=== PATIENT | female | born 2000 | race Caucasian/White ===

== ENCOUNTER 2018-08-08 20:24 | Emergency (ER) | payer OTHER ==
[2018-08-08 20:29] VITALS: BMI 20.5
--- NOTE | 2018-08-08 21:10 | PDOC ---
History of Present Illness - General History Source: Patient Exam Limitations: No Limitations - History of Present Illness Travel History: No Initial Comments: 08/08/18 21:45 Best Contact: PCP: Dr. Shivani Davis Pmhx:0 Pshx:0 Allergies:NKDA FH:0 Social Hx: Cigarettes/ 0 Alcohol/ 0 Drugs/0 LMP:02/09/2018 17-year-old female presents to the emergency department complaining of vaginal bleed described as "a lot of blood" with pelvic cramping times one hour. Patient states she was sitting/resting at home when she felt an acute lower pelvic cramping. Patient states she went to the bathroom and noticed a blood clot. Patient denies fever, chills, nausea/vomiting, headache, dizziness, lightheadedness, neck pain/stiffness, back pains, chest pain, urinary symptoms: Frequency/urgency/hesitancy, hematuria. Patient states she last had a sonogram 5 weeks ago which was normal. <Claude Nam - Last Filed: 08/09/18 01:53> <Caludette Cuellar - Last Filed: 08/09/18 17:16> - General Chief Complaint: Vaginal Bleeding Stated Complaint: 27 WEEKS Vaginal Bleeding Time Seen by Provider: 08/08/18 20:38 Past History - Past Medical History COPD: No - Suicide/Smoking/Psychosocial Hx Smoking History: Never smoked <Claude Nam - Last Filed: 08/09/18 01:53> <Claudette Cuellar - Last Filed: 08/09/18 17:16> - Past Medical History Allergies/Adverse Reactions: Allergies Allergy/AdvReac Type Severity Reaction Status Date / Time No Known Allergies Allergy Verified 08/08/18 21:40 Home Medications: Ambulatory Orders NK [No Known Home Medication] 08/08/18 Review of Systems - Review of Systems Able to Perform ROS?: Yes Comments:: 08/08/18 21:48 CONSTITUTIONAL: Absent: fever, chills, diaphoresis, generalized weakness, malaise, loss of appetite HEENT: Absent: rhinorrhea, nasal congestion, throat pain, throat swelling, difficulty swallowing, mouth swelling, ear pain, eye pain, visual Changes CARDIOVASCULAR: Absent: chest pain, loss of consciousness, palpitations, irregular heart rate, peripheral edema RESPIRATORY: Absent: cough, shortness of breath, dyspnea with exertion, orthopnea, wheezing, stridor, hemoptysis GASTROINTESTINAL: Absent: abdominal pain, abdominal distension, nausea, vomiting, diarrhea, constipation, melena, hematochezia GENITOURINARY: Absent: dysuria, frequency, urgency, hesitancy, hematuria, flank pain, genital pain SKIN: Absent: rash, itching, pallor Is the patient limited Urdu proficient: No <Claude Nam - Last Filed: 08/09/18 01:53> *Physical Exam - Vital Signs Last Vital Signs Temp Pulse Resp BP Pulse Ox 98.8 F 91 H 18 97/56 L 98 08/08/18 20:26 08/08/18 20:26 08/08/18 20:26 08/08/18 20:26 08/08/18 20:26 - Physical Exam Comments: 08/08/18 21:49 GENERAL: Well developed, well nourished. Awake and alert. No acute distress. HEENT: Normocephalic, atraumatic. PERRLA, EOMI. No conjunctival pallor. Sclera are non- icteric. Moist mucous membranes. Oropharynx is clear. NECK: Supple. Full ROM. No JVD. Carotid pulses 2+ and symmetric, without bruits. No thyromegaly. No lymphadenopathy. CARDIOVASCULAR: Regular rate and rhythm. No murmurs, rubs, or gallops. Distal pulses are 2+ and symmetric. PULMONARY: No evidence of respiratory distress. Lungs clear to auscultation bilaterally. No wheezing, rales or rhonchi. ABDOMINAL: Soft. Non-tender. Non-distended. No rebound or guarding. No organomegaly. Normoactive bowel sounds. SKIN: Warm and dry. Normal capillary refill. No rashes. No jaundice. <Claude Nam - Last Filed: 08/09/18 01:53> - Vital Signs Last Vital Signs Temp Pulse Resp BP Pulse Ox 98.3 F 96 H 18 113/61 98 08/08/18 21:30 08/08/18 21:30 08/08/18 21:30 08/08/18 21:30 08/08/18 20:26 <Claudette Cuellar - Last Filed: 08/09/18 17:16> ED Treatment Course - LABORATORY CBC & Chemistry Diagram: 08/08/18 21:00 08/08/18 21:00 - RADIOLOGY Radiograph Interpretation: 08/09/18 01:53 Trasvaginal us; no abnormalities identified. Estimated gestational age is 26 weeks and 3 days. Fetus is in vertex presentation. Normal amount of amniotic fluid for age. There is an anterior placenta without previa or abruption. Normal heart rate of 138 bpm. Cervix is 3.6 cm in length and closed. <Claude Nam - Last Filed: 08/09/18 01:53> - LABORATORY CBC & Chemistry Diagram: 08/08/18 21:00 08/08/18 21:00 - ADDITIONAL ORDERS Additional order review: 08/08/18 21:00 RBC 3.49 L MCV 95.5 MCHC 34.0 RDW 13.9 MPV 9.6 Neutrophils % 76.4 Lymphocytes % 16.6 Monocytes % 5.7 Eosinophils % 1.2 Basophils % 0.1 <Claudette Cuellar - Last Filed: 08/09/18 17:16> Progress Note - Progress Note Progress Note: Pt sent to L&D for monitoring <Claude Nam - Last Filed: 08/09/18 01:53> *DC/Admit/Observation/Transfer - Discharge Dispostion Decision to Admit order: No <Claude Nam - Last Filed: 08/09/18 01:53> - Attestations Physician Attestion: I reviewed the case with the mid-level practitioner and agree with the mid- level practitioner's assessment, diagnosis and disposition. <Claudette Cuellar - Last Filed: 08/09/18 17:16> Diagnosis at time of Disposition: Vagina bleeding, Threatened - Discharge Dispostion Disposition: HOME Condition at time of disposition: Stable - Referrals Referrals: [facility] ([facility]) [Outside] - Patient Instructions Additional Instructions: DISCHARGE TO HOME FOLLOW UP WITH 2 [facility] ON Friday08/10/18 REST AT HOME DRINK PLENTY OF FLUIDS DIET TOLERATED AVOID ANY SEXUAL INTERCOURSE UNTIL SEEN IN CLINIC BY MD CONTINUE ALL HOME MEDICATIONS RETURN TO HOSPITAL: CONTRACTIONS EVERY 3 TO 5 MINUTES DECREASED MOVEMENT HEAVY VAGINAL BLEEDING RUPTURE OF MEMBRANES OR "WATER BREAKS"
[2018-08-08 21:12] LABS: BASO % 0.1 % (0-2.0); EOS % 1.2 % (0-4.5); HEMATOCRIT 33.3 % (32.4-45.2); HEMOGLOBIN 11.4 GM/dL (10.7-15.3); LYMPH % 16.6 % (8-40); MCH 32.5 pg (25.7-33.7); MEAN CELL VOLUME 95.5 fl (80-96); MEAN PLT VOLUME 9.6 fl (7.5-11.1); MONO % 5.7 % (3.8-10.2); NEUT % 76.4 % (42.8-82.8); PLATELET COUNT 185 K/MM3 (134-434); RBC 3.49 M/mm3 (3.60-5.2); RDW 13.9 % (11.6-15.6); WHITE BLOOD COUNT 10.8 K/mm3 (4.0-10.0)
[2018-08-08 21:21] LABS: URINE APPEARANCE SLCLOUDY; URINE BILIRUBIN NEGATIVE (<2.0 mg/dL); URINE COLOR LTYELLOW; URINE GLUCOSE (UA) NEGATIVE (NEGATIVE); URINE KETONE NEGATIVE (NEGATIVE); URINE LEUK ESTERASE NEGATIVE (NEGATIVE); URINE NITRITE NEGATIVE (NEGATIVE); URINE PROTEIN NEGATIVE (NEGATIVE); URINE UROBILINOGEN NEGATIVE mg/dL (0.2-1.0)
[2018-08-08 21:23] LABS: EPI CELLS RARE /HPF (FEW); URINE BACTERIA RARE /hpf (NONE SEEN); URINE MUCUS RARE
[2018-08-08 22:14] LABS: ALBUMIN 3.1 g/dl (3.4-5.0); ALK PHOS 76 U/L (45-117); ANION GAP 0 MMOL/L (8-16); BILIRUBIN,TOTAL 0.2 mg/dL (0.2-1); BLOOD UREA NITROGEN 6 mg/dL (7-18); CALCIUM 9.4 mg/dL (8.5-10.1); CHLORIDE 107 mmol/L (98-107); CO2 26 mmol/L (21-32); CREATININE 0.3 mg/dL (0.55-1.3); GLUCOSE,RANDOM 68 mg/dL (74-106); POTASSIUM 3.7 mmol/L (3.5-5.1); SGOT/AST 12 U/L (15-37); SGPT/ALT 15 U/L (13-61); SODIUM 133 mmol/L (136-145); TOT PROT 6.9 g/dl (6.4-8.2)
[2018-08-08 22:27] VITALS: BP 113/61; TEMP 98.3
[2018-08-08 22:28] VITALS: PULSE 96
== END 2018-08-09 02:05 | disposition home or self-care (01) ==
LOC: JER 20:24
DX: O26.892 Other specified pregnancy related conditions, second trimester (principal); O20.0 Threatened abortion; Z3A.26 26 weeks gestation of pregnancy
CPT/HCPCS: 36415; 76816-TC; 76817-TC; 80053; 81003; 81015; 84702; 85025; 86850; 86900; 86901; 99281-25

== ENCOUNTER 2018-10-27 06:15 | Inpatient (IN) | payer OTHER ==
[2018-10-27] MEDS ORDERED: PROMETHAZINE HCL 25 MG/1 ML VIAL IVPUSH ONE (06:52)
[2018-10-27] MEDS ORDERED: BUTORPHANOL TARTRATE 1 MG/ML VIAL IVPB ONE (06:52)
[2018-10-27] MEDS ORDERED: ELECTROLYTE-148 SOLN 1,000 ML IV SCH (07:00)
--- NOTE | 2018-10-27 07:06 | HP ---
Past Medical History - Admission Chief Complaint: Uterine contractions History of Present Illness: 17yo @ 38.4 weeks here with uterine contractions. No VB/LOF. GFM uncomplicated History Source: Patient - Past Medical History PERIPHERAL VASCULAR TECH: No: Alzheimer's, CVA, Dementia, Migraine, Multiple Sclerosis, Peripheral Neuropathy, Parkinson's, Seizure, Syncope, TIA, Vertigo, Other Cardiovascular: No: AFIB, Aneurysm, Aortic Insufficiency, Aortic Stenosis, CAD, CHF, Deep Vein Thrombosis, HTN, Hyperlipdemia, [place], Mitral Insufficiency, Mitral Stenosis, Murmur, Pulmonary Hypertension, Other Gastrointestinal: No: Ascites, Cancer, Constipation, Crohn's Disease, Diverticulitis, Diverticulosis, Esophageal Varices, Gastritis, GERD, GI Bleed, Hemorrhoids, Hiatal Hernia, Inflamatory Bowel Disease, Irritable Bowel Disease, Pancreatitis, Peptic Ulcer Disease, Ulcerative Colitis, Other Hepatobiliary: No: Cirrhosis, Cholelithiasis, Cholecystitis, Choledocholithiasis , Hepatitis A, Hepatitis B, Hepatitis C, Other Reproductive: Yes: Polycystic Ovary Syndrome ...: 2 ...Para: 1 ... Weeks Gestation by Dates: 38.4 Heme/Onc: No: Anemia, B12 Deficiency, Bleeding Disorder, Cancer, Current Chemotherapy, Current Radiation Therapy, Hemochromatosis, Hypercoaguable State, Myeloproliferative Synd, Sickle Cell Disease, Sickle Cell Trait, Thrombocytopenia, Other Infectious Disease: Yes: Other. No: AIDS, C-Diff, Herpes Zoster, HIV, MRSA, STD 's, Tuberculosis, VREF Psych: No: Addictions, Anxiety, Bipolar, Depression, Panic, Psychosis, Schizophrenia, Other Musculoskeletal: No: Bursitis, Chronic low back pain, Hemiparesis, Hemiplegia, Osteoarthritis, Paraplegia, Other Rheumatology: Yes: Lupus - Past Surgical History Past Surgical History: No: None, AAA Repair, AICD, Amputation, Appendectomy, Arthrosocopy, AV Fistula/Graft, Bariatric Surgery, Breast Biopsy, Bypass, CABG, Carotid Endarterectomy, Cataract Removal, Cholecystectomy, Colectomy, Colonoscopy, Colostomy, Craniotomy, , Cystectomy, Hernia Repair, Hysterectomy, Ileal Conduit, Ileosotomy, Joint Replacement, Kidney Transplant, Laminectomy, Liver Transplant, Mastectomy, Nephrectomy, Oopherectomy, Orchiectomy, Permanent Pacemaker, Prostatectomy, Splenectomy, Stent, Thoracotomy , TURP, Tonsillectomy, Tubal Ligation, Upper Endoscopy, Valve Replacement, Vasectomy, Vein Stripping/Ligation Hx Myomectomy: No Hx Transabdominal Cerclage: No - Smoking History Smoking history: Never smoked - Alcohol/Substance Use Hx Alcohol Use: No History of Substance Use: reports: None - Social History Usual Living Arrangement: Yes: With Parent History of Recent Travel: No Home Medications - Allergies Allergies/Adverse Reactions: Allergies Allergy/AdvReac Type Severity Reaction Status Date / Time No Known Allergies Allergy Verified 10/27/18 07:23 - Home Medications Home Medications: Ambulatory Orders Ferrous Sulfate [Iron] 325 mg PO DAILY 10/01/18 Pnv No.95/Ferrous Fum/Folic AC [ Formula] 1 each PO DAILY 10/01/18 Physical Exam - Maternity Constitutional: Yes: Well Nourished, No Distress, Calm - Abdominal Exam/OB Number of Fetuses: Single Presentation: Vertex Contractions: Yes Regularity: Irregular Intensity: Mild/Mod Monitor Mode: External Category: I Accelerations: Uniform Decelerations: None - Vaginal Exam/OB Vaginal Bleediing: No Speculum Exam: No Dilatation (cm): 4-5 Effacement (%): 70 Amniotic Membrane Status: Intact Presentation: Vertex/Position Station: -3 - Physical Exam Musculoskeletal: Yes: WNL Assessment/Plan 17yo @ 38.4aks in labor Admit to L&D NPO, IVFs Epidural prn Anticipate ARJUN Rogers
[2018-10-27] MEDS ORDERED: BUTORPHANOL TARTRATE 1 MG/ML VIAL ONE (07:23)
[2018-10-27] MEDS ORDERED: PROMETHAZINE HCL 25 MG/1 ML VIAL ONE (07:23)
[2018-10-27 07:43] VITALS: BMI 23.4
[2018-10-27 08:24] LABS: BASO % 0.2 % (0-2.0); EOS % 0.9 % (0-4.5); HEMATOCRIT 31.2 % (32.4-45.2); HEMOGLOBIN 10.3 GM/dL (10.7-15.3); LYMPH % 24.9 % (8-40); MCH 30.5 pg (25.7-33.7); MCHC 32.9 g/dl (32.0-36.0); MEAN CELL VOLUME 92.6 fl (80-96); MEAN PLT VOLUME 10.3 fl (7.5-11.1); MONO % 5.6 % (3.8-10.2); NEUT % 68.4 % (42.8-82.8); PLATELET COUNT 173 K/MM3 (134-434); RBC 3.37 M/mm3 (3.60-5.2); RDW 12.9 % (11.6-15.6); WHITE BLOOD COUNT 8.2 K/mm3 (4.0-10.0)
[2018-10-27] MEDS ORDERED: OXYTOCIN 20 UNITS in 0.9% NS 0 UNIT/0 ML INFUS.BAG IV ONE (08:38)
[2018-10-27 08:44] LABS: INR 0.98 (0.83-1.09); PROTHROMBIN TIME (PATIENT) 11.6 SEC (9.7-13.0)
[2018-10-27 08:52] LABS: ANION GAP 10 MMOL/L (8-16); BLOOD UREA NITROGEN 8 mg/dL (7-18); CHLORIDE 105 mmol/L (98-107); CO2 21 mmol/L (21-32); CREATININE 0.3 mg/dL (0.55-1.3); GLUCOSE,RANDOM 129 mg/dL (74-106); POTASSIUM 3.9 mmol/L (3.5-5.1); SODIUM 136 mmol/L (136-145)
--- NOTE | 2018-10-27 09:10 | PN ---
Progress Note, Labor Vaginal Exam #1 Heart Rate (range): Cat I Dilatation: 8 Effacement (%): 100 Presentation: Vertex/Position Station: 0 Remarks: letty ORTEGA Anticipate Emily Rogers MD
[2018-10-27] MEDS ORDERED: OXYTOCIN 10 UNITS/ML VIAL IM ONE (10:10)
[2018-10-27] MEDS ORDERED: oxyCODONE HCL 5 MG TABLET ONE (10:32)
[2018-10-27] MEDS ORDERED: IBUPROFEN 600 MG TABLET (FP) PO ONE (10:32)
[2018-10-27 10:33] LABS: ARTERIAL BLD GAS O2 SATURATION 25.3 % (90-98.9); ARTERIAL BLOOD GAS BASE EXCESS -9.8 meq/l (-2-2); ARTERIAL BLOOD GAS PCO2 75.3 mmHg (35-45); ARTERIAL BLOOD GAS pH 7.09 (7.35-7.45)
[2018-10-27 10:38] LABS: VENOUS PH 7.24 (7.32-7.42); VENOUS PO2 33.5 mmHg (28-48)
[2018-10-27] MEDS: IBUPROFEN 600 MG TABLET (FP) PO PRN ×2 (10:40→17:09)
[2018-10-27] MEDS ORDERED: WITCH HAZEL 50% (TUCKS) 40 PAD/JAR PAD TP PRN (10:42)
[2018-10-27] MEDS ORDERED: METHYLERGONOVINE MALEATE 0.2 MG/1 ML AMP IM PRN (10:42)
[2018-10-27] MEDS ORDERED: BENZOCAINE 20% 57 GM BOTTLE TP PRN (10:42)
[2018-10-27] MEDS ORDERED: BENZOCAINE 28 GM HEMORRHOIDAL OINTMENT TP PRN (10:42)
--- NOTE | 2018-10-27 10:54 | PN ---
Delivery - Delivery Vaginal Delivery: Spontaneous (cx full at 935 am , at 10 am head on perinium, infiltrated wih local anesthesia, median episiotomy done , haed delivered direct OP , cord around necj once reduced, nasopharynx suctioned , ant. post shoulder followed with no difficulty , live baby girl, 8/9 , placents , spontaneous ,complete, rectum checked 3rd degree laceration ,, 3rd degree laceration first repaired with 2 chromic , and then episiotomy repaired in 3 layers with 2 chromic , rectal exam no defect, good tone ,tolorated procedure well) Episiotomy/Laceration: Midline, 3rd degree EBL (cc): 300 Delivery, Single - [place] Feeding Plan Initial Plan: Elected not to breastfeed exclusively throughout hospitalization
--- NOTE | 2018-10-27 10:56 | PN ---
Progress Note (short form) - Note Progress Note: 935 am i took over management, cx full 100 vx 1+ patient wants to push , fhr cat 1
[2018-10-27] MEDS ORDERED: oxyCODONE HCL 5 MG TABLET PO ONE (11:15)
[2018-10-27] MEDS: FERROUS SO4 325 MG TABLET (FP) PO SCH (17:09)
[2018-10-27] MEDS: ACETAMINOPHEN 325 MG TABLET (FP) PO PRN (17:10)
[2018-10-28] MEDS: ACETAMINOPHEN 325 MG TABLET (FP) PO PRN ×3 (03:24→17:12)
[2018-10-28] MEDS: IBUPROFEN 600 MG TABLET (FP) PO PRN ×3 (03:25→17:12)
[2018-10-28 06:55] LABS: BASO % 0.2 % (0-2.0); HEMATOCRIT 29.9 % (32.4-45.2); HEMOGLOBIN 9.6 GM/dL (10.7-15.3); LYMPH % 19.3 % (8-40); MCH 29.8 pg (25.7-33.7); MCHC 32.1 g/dl (32.0-36.0); MEAN CELL VOLUME 92.8 fl (80-96); MEAN PLT VOLUME 10.8 fl (7.5-11.1); MONO % 5.9 % (3.8-10.2); NEUT % 73.6 % (42.8-82.8); PLATELET COUNT 165 K/MM3 (134-434); RBC 3.23 M/mm3 (3.60-5.2); RDW 12.9 % (11.6-15.6); WHITE BLOOD COUNT 12.7 K/mm3 (4.0-10.0)
[2018-10-28] MEDS: FERROUS SO4 325 MG TABLET (FP) PO SCH ×2 (08:06→17:12)
[2018-10-28] MEDS: PRENATAL VITAMINS W/ FOLIC ACID TABLET (FP) PO SCH (09:19)
--- NOTE | 2018-10-28 09:56 | PN ---
Progress Note (short form) - Note Progress Note: ppd 1 doing well, no c/o . voids ok, ambulating, no excess vaginal bleeding CBC, BMP 10/28/18 05:15 10/27/18 07:40 Last Vital Signs Temp Pulse Resp BP Pulse Ox 98.5 F 71 20 93/49 L 98 10/28/18 08:18 10/28/18 08:18 10/28/18 08:18 10/28/18 08:18 10/27/18 12:00 abdomen soft, uterus firm , non tender lochia mild perinium clean , intact no calf tenderness plan ambulate . plan for d/c home in am
[2018-10-28] MEDS ORDERED: DIPHTH,PERTUSS(ACELL),TET 0.5 ML DISP.SYRIN IM ONE (10:00)
[2018-10-28] MEDS ORDERED: SENNOSIDES/DOCUSATE COMBO (SENNA PLUS) TABLET (UD) PO PRN (22:00)
--- NOTE | 2018-10-29 05:56 | DS ---
Physical Examination Vital Signs: Vital Signs Temperature 98.5 F 10/28/18 22:00 Pulse Rate 82 10/28/18 22:00 Respiratory Rate 18 10/28/18 22:00 Blood Pressure 105/61 10/28/18 22:00 O2 Sat by Pulse Oximetry (%) 98 10/27/18 12:00 Constitutional: Yes: Well Nourished, No Distress, Calm Eyes: Yes: WNL, Conjunctiva Clear, EOM Intact HENT: Yes: WNL, Atraumatic, Normocephalic Neck: Yes: WNL, Supple, Trachea Midline Cardiovascular: Yes: WNL, Regular Rate and Rhythm Respiratory: Yes: WNL, Regular, CTA Bilaterally Gastrointestinal: Yes: WNL, Normal Bowel Sounds Musculoskeletal: Yes: WNL Extremities: Yes: WNL Edema: No Integumentary: Yes: WNL Neurological: Yes: WNL, Alert, Oriented ...Motor Strength: WNL Psychiatric: Yes: WNL Labs: CBC, BMP 10/28/18 05:15 10/27/18 07:40 Discharge Summary Reason For Visit: LABOR ADMIT Procedures: Principal: Hospital Course: Patient presented in labor. She had an uncomplicated She met all milestones She was discharged home on PPD#2 Emily Rogers MD - Instructions - Home Medications Comprehensive Discharge Medication List: Ambulatory Orders Ferrous Sulfate [Iron] 325 mg PO DAILY 10/01/18 Pnv No.95/Ferrous Fum/Folic AC [ Formula] 1 each PO DAILY 10/01/18
[2018-10-29 07:56] VITALS: BP 109/60; PULSE 81; TEMP 98.2
[2018-10-29] MEDS: FERROUS SO4 325 MG TABLET (FP) PO SCH (08:06)
[2018-10-29] MEDS: IBUPROFEN 600 MG TABLET (FP) PO PRN (08:06)
[2018-10-29] MEDS: ACETAMINOPHEN 325 MG TABLET (FP) PO PRN (08:07)
[2018-10-29] MEDS: PRENATAL VITAMINS W/ FOLIC ACID TABLET (FP) PO SCH (09:06)
== END 2018-10-29 11:20 | disposition home or self-care (01) | DRG 542 ==
LOC: JLDR 06:15 → J3W 12:15
PROVIDERS: ADMIT Obstetrics & Gynecology; ATTEND Obstetrics & Gynecology
PROC: 10E0XZZ Delivery of Products of Conception, External Approach (ICD-10-PCS; principal; 2018-10-27)
PROC: 0W8NXZZ Division of Female Perineum, External Approach (ICD-10-PCS; 2018-10-27)
PROC: 0DQR0ZZ Repair Anal Sphincter, Open Approach (ICD-10-PCS; 2018-10-27)
DX: O69.81X0 Labor and delivery complicated by cord around neck, without compression, not applicable or unspecified (principal); O70.20 Third degree perineal laceration during delivery, unspecified; Z3A.38 38 weeks gestation of pregnancy; Z37.0 Single live birth
CPT/HCPCS: 36415; 36600; 59409; 80048; 82803; 85025; 85610; 86593; 86850; 86900; 86901; 90715

== ENCOUNTER 2019-08-05 | Inpatient (IN) | payer OTHER ==
[2019-08-05] MEDS: AMPICILLIN - 2 GM in DEXTROSE 5%-WATER 100 ML IVPB STA ×2 (00:25→02:02)
[2019-08-05 00:55] LABS: BASO % 0.3 % (0-2.0); EOS % 0.3 % (0-4.5); HEMATOCRIT 31.4 % (32.4-45.2); HEMOGLOBIN 10.4 GM/dL (10.7-15.3); LYMPH % 13.8 % (8-40); MCH 31.9 pg (25.7-33.7); MCHC 33.2 g/dl (32.0-36.0); MEAN CELL VOLUME 96.3 fl (80-96); MEAN PLT VOLUME 10.9 fl (7.5-11.1); MONO % 6.6 % (3.8-10.2); PLATELET COUNT 165 K/MM3 (134-434); RBC 3.26 M/mm3 (3.60-5.2); RDW 13.4 % (11.6-15.6); WHITE BLOOD COUNT 15.5 K/mm3 (4.0-10.0)
[2019-08-05 01:07] LABS: INR 1.01 (0.83-1.09); PROTHROMBIN TIME (PATIENT) 11.9 SEC (9.7-13.0)
[2019-08-05 01:10] LABS: ACTIVATED PTT 24.5 SECONDS (25.2-36.5)
--- NOTE | 2019-08-05 01:10 | HP ---
Past Medical History - Admission Chief Complaint: Vaginal Bleeding History of Present Illness: 18yo @ 26.3wks by LMP/sono here with vaginal bleeding. Seen in triage over the weekend for bleeding, found to have shortened cervix 2.5cm with funneling. Received BMZ 08/01 and 08/02. Denies LOF/ctx, +FM. Preg c/b short interval (last delivered 10/27/2018). History Source: Patient Limitations to Obtaining History: No Limitations, Clinical Condition, Dementia, Intoxication, Intubated, Language Barrier, Physical Impairment, Poor Historian, Uncooperative, Unresponsive, Other - Past Medical History LONG GOODS DRIER: No: Alzheimer's, CVA, Dementia, Migraine, Multiple Sclerosis, Peripheral Neuropathy, Parkinson's, Seizure, Syncope, TIA, Vertigo, Other Cardiovascular: No: AFIB, Aneurysm, Aortic Insufficiency, Aortic Stenosis, CAD, CHF, Deep Vein Thrombosis, HTN, Hyperlipdemia, [place], Mitral Insufficiency, Mitral Stenosis, Murmur, Pulmonary Hypertension, Other Pulmonary: No: Asthma, Bronchitis, Cancer, COPD, O2 Dependent, Pneumonia, Previously Intubated, Pulmonary Embolus, Pulmonary Fibrosis, Sleep Apnea, Other Gastrointestinal: No: Ascites, Cancer, Constipation, Crohn's Disease, Diverticulitis, Diverticulosis, Esophageal Varices, Gastritis, GERD, GI Bleed, Hemorrhoids, Hiatal Hernia, Inflamatory Bowel Disease, Irritable Bowel Disease, Pancreatitis, Peptic Ulcer Disease, Ulcerative Colitis, Other Hepatobiliary: No: Cirrhosis, Cholelithiasis, Cholecystitis, Choledocholithiasis , Hepatitis A, Hepatitis B, Hepatitis C, Other Renal/: No: Renal Failure, Renal Inusuff, BPH, Cancer, Hematuria, Hemodialysis , Neurogenic Bladder, Renal Calculi, UTI, Other ...: 6 ...Para: 2 ...Term: 2 ...Spon : 3 Heme/Onc: Yes: Anemia Infectious Disease: Yes: Other. No: AIDS, C-Diff, Herpes Zoster, HIV, MRSA, STD 's, Tuberculosis, VREF Rheumatology: No: Fibromyalgia, Gout, Lupus, Rheumatoid Arthritis, Sarcoidosis, Vasculitis, Other - Past Surgical History Past Surgical History: Yes: None Hx Myomectomy: No Hx Transabdominal Cerclage: No - Smoking History Smoking history: Never smoked Have you smoked in the past 12 months: No - Alcohol/Substance Use Hx Alcohol Use: No History of Substance Use: reports: None - Social History Usual Living Arrangement: Yes: With Parent ADL: Independent History of Recent Travel: Yes ([place]) Home Medications - Allergies Allergies/Adverse Reactions: Allergies Allergy/AdvReac Type Severity Reaction Status Date / Time No Known Allergies Allergy Verified 08/02/19 08:51 - Home Medications Home Medications: Ambulatory Orders Pnv No.95/Ferrous Fum/Folic AC [ Formula] 1 each PO DAILY 10/01/18 Review of Systems - Review of Systems Constitutional: denies: No Symptoms, Chills, Diaphoresis, Fever, Lethargy, Loss of Appetite, Malaise, Night Sweats, Unintentional Wgt. Loss, Weakness, Other Gastrointestinal: denies: No Symptoms, Abdominal Pain, Bloating, Constipation, Diarrhea, Dysphagia, Indigestion, Melena, Nausea, Rectal Bleeding, Vomiting, Vomiting Blood, Other Genitourinary: reports: Vaginal Bleeding Physical Exam - Maternity Constitutional: Yes: Well Nourished, No Distress, Calm - Abdominal Exam/OB Number of Fetuses: Single Presentation: Breech Intensity: Unaware Category: I Accelerations: Non-Uniform Decelerations: None - Vaginal Exam/OB Vaginal Bleediing: Yes Speculum Exam: No Dilatation (cm): 6 Effacement (%): 100 Amniotic Membrane Status: Bulging Presentation: Jason Breech - Physical Exam Edema: No Problem List - Problems (1) labor in second trimester with delivery Problems reviewed: Yes Code(s): O60.12X0 - LABOR SECOND TRI W DELIVERY SECOND TRI, UNSP Qualifiers: Fetus number: single or unspecified fetus Qualified Code(s): O60.12X0 - labor second trimester with delivery second trimester, not applicable or unspecified Assessment/Plan 18yo @ 26.3wks here with PTL Admit to L&D NPO, IVFs Amp for PTL, GBS ppx Magnesium for Neuro PPX, NICU aware Bedside sono shows breech presentation, recommended Delivery, possible Classical. Risk of bleeding, infection, injury to bladder/bowel/adnexa/vessels and nerves reviewed. Implications of Classical C/S reviewed. Pt also made aware of transfer of to NICU for care after delivery. Given potential for imminent delivery (advanced dilation, bulging membranes) breech presentation, will proceed to OR immediately for Primary C/S. Shruthi Rogers MD
[2019-08-05] MEDS ORDERED: ELECTROLYTE-148 SOLN 1,000 ML IV SCH (01:15)
[2019-08-05 01:20] LABS: BLOOD UREA NITROGEN 12.6 mg/dL (7-18); CALCIUM 8.2 mg/dL (8.5-10.1); CREATININE 0.5 mg/dL (0.55-1.3); POTASSIUM 3.7 mmol/L (3.5-5.1)
[2019-08-05] MEDS ORDERED: AMPICILLIN - 2 GM in SODIUM CHLORIDE 100 ML IVPB ONE (01:20)
[2019-08-05 01:27] VITALS: BMI 23.4
[2019-08-05] MEDS ORDERED: MAGNESIUM SULFATE 20GM/500ML - 20 GM/500 ML INFUS.BAG IV SCH (01:30)
[2019-08-05] MEDS ORDERED: MAGNESIUM 4GM/H20 - 4 GM/100 ML IVPB IVPB SCH (01:30)
[2019-08-05] MEDS ORDERED: IBUPROFEN 600 MG TABLET (FP) PO PRN (01:35)
[2019-08-05] MEDS ORDERED: ONDANSETRON 4 MG/2 ML VIAL IVPUSH PRN (01:35)
[2019-08-05] MEDS ORDERED: CITRIC ACID/SODIUM CITRATE 30 ML UNIT-DOSE CUP PO ONE (02:00)
[2019-08-05] MEDS ORDERED: DEXTROSE 5%-LACTATED RINGERS 1,000 ML IV SCH (02:00)
[2019-08-05] MEDS ORDERED: MAGNESIUM SULFATE 20GM/500ML - 20 GM/500 ML INFUS.BAG IVPB SCH (02:15)
[2019-08-05] MEDS ORDERED: MAGNESIUM 4GM/H20 - 4 GM/100 ML IVPB IVPB ONE (02:15)
[2019-08-05] MEDS ORDERED: METHYLERGONOVINE MALEATE 0.2 MG/1 ML AMP IM PRN (02:50)
[2019-08-05] MEDS ORDERED: oxyCODONE HCL 5 MG TABLET PO PRN (02:50)
--- NOTE | 2019-08-05 02:55 | OP ---
Operative Note - Note: Operative Date: 08/05/19 Pre-Operative Diagnosis: 26 week , labor, Breech presentation Operation: Primary Low Transverse Findings: VFI, Jason Breech, Apgars 7/9. Weight pending. Normal tubes and ovaries bilaterally Post-Operative Diagnosis: Same as Pre-op Surgeon: Emily Rogers Wood Piler: Debbie Thomas Anesthesiologist/REMOTE SENSING TECHNICIAN: Manny Juarez Anesthesia: Spinal Estimated Blood Loss (mls): 400 Drains, Volume Out (mls): 400 (clear urine) Operative Report Dictated: Yes
[2019-08-05] MEDS ORDERED: OXYTOCIN 20 UNITS in 0.9% NS 20 UNIT/1,000 ML INFUS.BAG IV SCH (03:00)
[2019-08-05] MEDS ORDERED: OXYTOCIN 20 UNITS in 0.9% NS 20 UNIT/1,000 ML INFUS.BAG IV ONE (03:51)
[2019-08-05] MEDS: IBUPROFEN 800 MG/8 ML IJ IVPB PRN (04:00)
[2019-08-05] MEDS ORDERED: AMPICILLIN - 1 GM in DEXTROSE 5%-WATER 100 ML IVPB SCH (06:00)
--- NOTE | 2019-08-05 07:50 | OP ---
DATE OF OPERATION: 08/05/2019 PREOPERATIVE DIAGNOSIS: A 26-week , labor, breech presentation. POSTOPERATIVE DIAGNOSIS: A 26-week , labor, breech presentation. PROCEDURE: Primary low transverse section. ANESTHESIA: Spinal. INTRAVENOUS FLUIDS: Per anesthesia record. ESTIMATED BLOOD LOSS: 400. URINE OUTPUT: Clear urine 400 mL at the end of the procedure. SURGEON: Emily Rogers MD DRY WALL PLASTERER: Debbie Thomas DO ANESTHESIOLOGIST: Manny Juarez MD FINDINGS: Viable female infant, edgar breech presentation, Apgars 7 and 9, weight 2 pounds 0 ounces. Normal tubes and ovaries bilaterally. No nuchal. No meconium. COMPLICATIONS: None. CONDITION: Stable to recovery room. NATURE OF THE PROCEDURE: After the appropriate consents were signed including consent for classical section, patient was taken to the operating room where spinal anesthesia was administered. Lane catheter was inserted prior to entry into the operating room. Patient was placed in supine position. The abdomen was prepped and draped in normal sterile fashion. Timeout was performed confirming correct patient and procedure. A Pfannenstiel incision was made, carried through to the underlying layers until the fascia was nicked in the midline. The fascia was then extended laterally with the Hartman scissors. The inferior aspect of the fascia was grasped with the Juan clamps, tented upwards, and the rectus muscles dissected off bluntly and with the Hartman scissors. Attention was then paid to the superior aspect which was taken down in a similar fashion. The rectus muscles were in the midline with a scalpel and then bluntly. Peritoneum was entered sharply. Bladder blade was inserted. The uterus was incised, nicked in the midline in a low transverse fashion with the Metzenbaum scissors, and a bladder flap was then created digitally. Uterus was then incised in a low transverse fashion. Clear amniotic fluid was noted. The was noted to be in edgar breech presentation. The buttocks and legs were delivered through the hysterotomy as was the infant's trunk. The head was delivered without difficulty with the usual maneuvers. The cord was clamped and cut after 1 minute of pulsating. The was then handed off to the awaiting NICU staff. The placenta was then removed manually. The uterus was cleared of clot and debris. The uterus was exteriorized. The hysterotomy was closed in 2 layers with a 1-0 Vicryl with good hemostasis. The adnexa were inspected and noted to be normal. The uterus was then returned to the abdominal cavity. The hysterotomy was re-inspected, which was noted to be normal. The gutters were cleared of all clot and debris. The muscles were reapproximated with a 2-0 chromic. Fascia was closed with a 0 Vicryl subcutaneous. The subcutaneous fat was closed with a 2-0 plain. The skin was closed with a 3-0 Biosyn. All sponge, lap, needle counts were correct x3. She did receive Ancef at the start of the procedure. She was taken from the operating room to the recovery area in stable condition. MD BRYNN JONES/[id number] MTDD
[2019-08-05] MEDS: IBUPROFEN 600 MG TABLET (FP) PO PRN (17:01)
[2019-08-05] MEDS: SIMETHICONE 80 MG TAB.CHEW (FP) PO PRN (17:01)
[2019-08-05] MEDS: ACETAMINOPHEN 325 MG TABLET (FP) PO PRN (17:02)
[2019-08-06] MEDS: IBUPROFEN 800 MG/8 ML IJ IVPB PRN (00:05)
[2019-08-06] MEDS ORDERED: BISACODYL 10 MG SUPP.RECT RC PRN (02:50)
--- NOTE | 2019-08-06 06:31 | PN ---
Progress Note (short form) - Note Progress Note: pod 1 s/p c/s . doing well, has mild cramps CBC, BMP 08/05/19 00:45 08/05/19 00:45 Last Vital Signs Temp Pulse Resp BP Pulse Ox 98.4 F 80 20 126/60 98 08/06/19 00:55 08/06/19 00:55 08/06/19 02:00 08/06/19 00:55 08/05/19 03:30 abdomen soft, no distension , no cva incision dry, clean no calf tenderness lochia mild plan ambulate advance diet cbc pain management
[2019-08-06] MEDS: SIMETHICONE 80 MG TAB.CHEW (FP) PO PRN ×3 (08:17→19:52)
[2019-08-06] MEDS: IBUPROFEN 600 MG TABLET (FP) PO PRN ×3 (08:18→19:52)
[2019-08-06] MEDS: ACETAMINOPHEN 325 MG TABLET (FP) PO PRN ×3 (08:19→19:53)
[2019-08-06 08:32] LABS: BASO % 0.1 % (0-2.0); EOS % 1.9 % (0-4.5); HEMATOCRIT 31.8 % (32.4-45.2); HEMOGLOBIN 10.3 GM/dL (10.7-15.3); LYMPH % 14.9 % (8-40); MCH 31.6 pg (25.7-33.7); MCHC 32.5 g/dl (32.0-36.0); MEAN CELL VOLUME 97.2 fl (80-96); MONO % 5.9 % (3.8-10.2); NEUT % 77.2 % (42.8-82.8); PLATELET COUNT 164 K/MM3 (134-434); RBC 3.27 M/mm3 (3.60-5.2); RDW 13.5 % (11.6-15.6); WHITE BLOOD COUNT 15.9 K/mm3 (4.0-10.0)
--- NOTE | 2019-08-06 08:59 | PN ---
Progress Note (short form) - Note Progress Note: POD1 s/p csection with spinal duramorph. Pt c/o mild cramps, but minimal incisional pain. No back pain, no PERALES, VSS, no anesthetic issues/complications noted.
[2019-08-06] MEDS ORDERED: FLU VACCINE QUAD 60 MCG/0.5 ML (MDV 19-20) IM ONE (10:00)
[2019-08-06] MEDS ORDERED: FLU VACC QS2019-20(6MOS UP)/PF 60 MCG/0.5 ML SYRINGE IM ONE (10:45)
--- NOTE | 2019-08-07 08:54 | DS ---
Physical Examination Vital Signs: Vital Signs Temperature 98.7 F 08/06/19 21:02 Pulse Rate 76 08/06/19 21:02 Respiratory Rate 18 08/06/19 21:02 Blood Pressure 108/56 L 08/06/19 21:02 O2 Sat by Pulse Oximetry (%) 98 08/05/19 03:30 Findings/Remarks: ambulating, tolerating PO, lochia decreased, voiding, requesting discharge as baby was transferred out due to severe prematurity Constitutional: Yes: Calm HENT: Yes: Atraumatic Neck: Yes: Supple Cardiovascular: Yes: Regular Rate and Rhythm Respiratory: Yes: Regular Gastrointestinal: Yes: Normal Bowel Sounds ...Rectal Exam: Yes: Deferred Renal/: Yes: Other Breast(s): Yes: Other (deferred) Musculoskeletal: Yes: WNL Extremities: Yes: WNL Edema: Yes Edema: LLE: Trace, RLE: Trace Integumentary: Yes: WNL Wound/Incision: Yes: Clean/Dry, Well Approximated, Sutures Intact (no induration , no fluctuance) Neurological: Yes: Alert, Oriented ...Motor Strength: WNL Psychiatric: Yes: Alert, Oriented Labs: CBC, BMP 08/06/19 07:30 08/05/19 00:45 Discharge Summary Problems reviewed: Yes Reason For Visit: LABOR, Pre-term delivery Current Active Problems labor in second trimester with delivery (Acute) Procedures: Principal: [facility] Hospital Course: Patient admitted for active labor requiring emergent C/S due to malpresentation. Post-op recovery uncomplicated and requested discharge on POD # 2 in ordered to be with . Baby was transferred out. Plan of Treatment: Please follow up instructions as explained by attending. Follow up within a week at health center for incision check Condition: Stable - Instructions Diet, Activity, Other Instructions: Follow up in one week for an incision check Regular Diet Referrals: Emily Rogers MD [Staff Physician] - Disposition: HOME - Home Medications Comprehensive Discharge Medication List: Ambulatory Orders Pnv No.95/Ferrous Fum/Folic AC [ Formula] 1 each PO DAILY 10/01/18 Ibuprofen [Motrin -] 600 mg PO QID PRN #28 tablet 08/05/19 Oxycodone HCl/Acetaminophen [Percocet 5-325 mg Tablet -] 1 - 2 tab PO Q6H PRN # 20 tab MDD 4 08/05/19 Prescription Drug Monitoring Program (I-STOP) results: I-STOP reviewed and no issues identified
[2019-08-07 10:43] VITALS: BP 116/72; PULSE 57; TEMP 99
--- NOTE | 2019-08-09 11:28 | PATH ---
Surgical Pathology Report Patient Name: CHASITY MERCADO Med. Rec. 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 TRIVASCULAR CORD. MEMBRANES WITH NO DIAGNOSTIC ABNORMALITIES. Comment: Clinical history of labor noted. Electronically Signed Flex Warner M.D. Gross Description The specimen is received fresh labeled placenta and is a 224gram, 15 x12.5 x 1.1cm. placenta with attached membranes and umbilical cord. The attached membranes are glistening, translucent, and insert marginally. The umbilical cord measures 7 cm. in length and averages 1.5 cm. in diameter. The cord inserts centrally, 5 centimeter to the nearest margin. No true knots or strictures are identified. Cut surface of the umbilical cord reveals 3 vessels. Sectioning reveals red-brown, spongy parenchyma. No lesions are identified. Heel Coverer sections are submitted in three cassettes as follows: 1- membrane rolls and umbilical cord; 2-3- full thickness sections of placenta KWS/08/05/2019 sulki/08/05/2019
== END 2019-08-07 12:50 | disposition home or self-care (01) | DRG 540 ==
LOC: JLDR → J3W 04:25
PROVIDERS: ADMIT Obstetrics & Gynecology; ATTEND Obstetrics & Gynecology
PROC: 10D00Z1 Extraction of Products of Conception, Low, Open Approach (ICD-10-PCS; principal; 2019-08-05)
DX: O60.12X0 Preterm labor second trimester with preterm delivery second trimester, not applicable or unspecified (principal); O32.1XX0 Maternal care for breech presentation, not applicable or unspecified; Z3A.26 26 weeks gestation of pregnancy; Z37.0 Single live birth
CPT/HCPCS: 36415; 80048; 85025; 85610; 85730; 86593; 86850; 86900; 86901; 87389; 88307-TC; 90686

== ENCOUNTER 2020-08-28 01:09 | Emergency (ER) | payer OTHER ==
[2020-08-28 01:17] VITALS: BP 138/82; PULSE 84; TEMP 99.2; BMI 25.5
--- NOTE | 2020-08-28 01:17 | PDOC ---
History of Present Illness - General Stated Complaint: BACK PAIN - History of Present Illness Initial Comments: 19 yo female with no significant PMH presents with lower back pain for 2 days. She says the pain is worse when extends, better when she leans forward. She endorses fevers, dysuria, headache, poor appetite, nausea, vomiting (2x, nbnb). She denies cp, sob. She is sexually active and uses the depo control. She does not take any medications. She denies std/sti history. She denies abnormal discharge. 08/28/20 01:36 Past History - Medical History Allergies/Adverse Reactions: Allergies Allergy/AdvReac Type Severity Reaction Status Date / Time No Known Allergies Allergy Verified 08/28/20 01:18 Home Medications: Ambulatory Orders Pnv No.95/Ferrous Fum/Folic AC [ Formula] 1 each PO DAILY 10/01/18 Ibuprofen [Motrin -] 600 mg PO QID PRN #28 tablet 08/05/19 Oxycodone HCl/Acetaminophen [Percocet 5-325 mg Tablet -] 1 - 2 tab PO Q6H PRN #20 tab MDD 4 08/05/19 Cephalexin [Keflex] 500 mg PO TID 10 Days #30 capsule 08/28/20 Asthma: No Cancer: No Cardiac Disorders: No COPD: No CHF: No Diabetes: No HTN: No Seizures: No Thyroid Disease: No - Psycho-Social/Smoking History Smoking History: Never smoked Have you smoked in the past 12 months: No Review of Systems - Review of Systems Constitutional: Yes: Chills, Fever. No: Weakness HEENTM: No: Recent change in vision, Double Vision Respiratory: No: Cough, Shortness of Breath Cardiac (ROS): No: Chest Pain, Palpitations, Syncope ABD/GI: Yes: Nausea, Vomiting. No: Constipated, Diarrhea : Yes: Burning, Dysuria, Flank Pain. No: Discharge, Hematuria Musculoskeletal: No: Joint Pain, Muscle Pain Integumentary: No: Erythema, Lesions Neurological: No: Headache, Tingling Psychiatric: No: Anxiety, Depression Endocrine: No: Intolerance to Cold, Intolerance to Heat Hematologic/Lymphatic: No: Anemia, Easy Bruising *Physical Exam - Physical Exam General Appearance: Yes: Appropriately Dressed. No: Apparent Distress HEENT: positive: EOMI, Normal Voice Neck: negative: Tender, Rigid Respiratory/Chest: positive: Lungs Clear, Normal Breath Sounds. negative: Respiratory Distress Cardiovascular: positive: Regular Rhythm, Regular Rate, S1, S2 Female Pelvic Exam: positive: normal external exam, normal size ovaries, adnexal tenderness (left sided). negative: CMT, discharge, lesions, vaginal bleeding Gastrointestinal/Abdominal: positive: Flat, Soft. negative: Tender Musculoskeletal: positive: Normal Inspection. negative: CVA Tenderness Extremity: positive: Normal Capillary Refill, Normal Inspection, Normal Range of Motion Integumentary: positive: Normal Color, Dry, Warm Neurologic: positive: Fully Oriented, Alert, Normal Mood/Affect Medical Decision Making - Medical Decision Making 19 yo female with no significant PMH. Pt presents with dysuria, flank pain, fevers, chills, nausea, vomiting. VS: stable PE: suprapubic pain, bilateral flank pain, left adnexal pain Labs: Urine : negative Urinalysis: contaminated, likely infection Urine Culture: pending HIV: negative (called patient to update) GC: Pt symptoms most likely correspond with Pyelonephritis Given Cephalexin 500 po tid x10 days Instructions to follow up outpatient. 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 Follow up with your primary care doctor within 5 days for further evaluation of your condition. Return to the emergency department if your condition worsens and/or you experience fevers, chills, nausea, vomiting, abdominal pain, painful urination, abnormal discharge, back pain. - Post Discharge Activity
--- OUTSIDE RECORDS SUMMARY | 2020-08-28 01:25 | XMS ---
:2000 Author Organization [facility] Support Name Relationship Address Phone UE Unavailable Unavailable Unavailable LISA SCOTT MOTHER [address] [place] [address] ANNIKA SCOTT Unavailable [address] [place] [address] Re-disclosure Warning The records that you are about to access may contain information from federally- assisted alcohol or drug abuse programs. If such information is present, then the following federally mandated warning applies: This information has been disclosed to you from records protected by federal confidentiality rules (42 CFR part 2). The federal rules prohibit you from making any further disclosure of this information unless further disclosure is expressly permitted by the written consent of the person to whom it pertains or as otherwise permitted by 42 CFR part 2. A general authorization for the release of medical or other information is NOT sufficient for this purpose. The Federal rules restrict any use of the information to criminally investigate or prosecute any alcohol or drug abuse patient.The records that you are about to access may contain highly sensitive health information, the redisclosure of which is protected by Article 27-F of the [facility] Public Health law. If you continue you may haveaccess to information: Regarding HIV / AIDS; Provided by facilities licensed or operated by the [facility] Office of Mental Health; or Provided by the [facility] Office for People With Developmental Disabilities. If such information is present, then the following [facility] mandated warning applies: This information has been disclosed to you from confidential records which are protected by state law. State law prohibits you from making any further disclosure of this information without the specific written consent of the person to whom it pertains, or as otherwise permitted by law. Any unauthorized further disclosure in violation of state law may result in a fine or care home sentence or both. A general authorization for the release of medical or other information is NOT sufficient authorization for further disclosure. Encounters Encounter Providers Location Date Indications Data Source(s ) (EOB) Established [facility] 08/03/2019 eCW 3 ([facility] A[facility] 12:00:00 AM [facility]) 08/03/2019 12:00:00 AM EDT (EOB) Established [facility] 07/06/2019 eCW 3 ([facility] A28 12:00:00 [facility]) 07/06/2019 12:00:00 AM EDT Immunizations Vaccine Date Status Description Data Source(s) As of June 1999, a 04/26/2020 completed eCW3 ([facility] 2-dose hepatitis B 10:14:00 AM [facility]) schedule for adolescents (11-15 year olds) was FDA approved for [employer]'s Recombivax HB adult formulation. Use code 43 for the 2-dose. This code should be used for any use of standard adult formulation of hepatitis B vaccine. Insurance Providers Payer name Policy type Policy ID Covered Covered alliance party's Policy P raina / Coverage alliance party ID relationship to [facility] Inf ormation type mann [facility] [id number] SP [id number] 500 HEALTH NON CAP MEDICAID [id number] SP [id number] Problems, Conditions, and Diagnoses Code Display Name Description Problem Type Effective Dates Data Source(s) E66.3 Overweight Overweight Problem 04/26/2020 eCW3 ([place] 12:00:00 AM [facility]) Z97.5 Nexplanon in Nexplanon in place Problem 04/26/2020 eCW3 ([place] 12:00:00 AM [facility]) Social History Code Duration Value Status Description Data Source(s ) Smoking 04/26/2020 12:00:00 Never Smoker completed Never Smoker e CW3 ([facility]) Smoking 04/26/2020 12:00:00 Never Smoker completed Never Smoker e CW3 ([facility]) Smoking 12/24/2019 12:00:00 Never Smoker completed Never Smoker e CW3 ([facility]) Smoking 12/24/2019 12:00:00 Never Smoker completed Never Smoker e CW3 ([facility]) Smoking 12/24/2019 12:00:00 Never Smoker completed Never Smoker e CW3 ([facility]) Smoking 12/24/2019 12:00:00 Never Smoker completed Never Smoker e CW3 ([facility]) Smoking 12/24/2019 12:00:00 Never Smoker completed Never Smoker e CW3 ([facility]) Vital Signs ID Date Data Source UNK Name Value Range Interpretation Code Description Data Source(s) Body mass index 23.436 kg/m2 23.436 kg/m2 eCW3 ([place] (BMI) [Ratio] [facility]) Body weight 120 [lb_av] 120 [lb_av] eCW3 ([facility]) Body height 60 [in_i] 60 [in_i] eCW3 ([facility]) Diastolic blood 65 mm[Hg] 65 mm[Hg] eCW3 ([facility]) Systolic blood 102 mm[Hg] 102 mm[Hg] eCW3 ([facility]) Body temperature 98.5 [degF] 98.5 [degF] eCW3 ( [facility]) Heart rate 20 /min 20 /min eCW3 ([facility]) Diastolic blood 64 mm[Hg] 64 mm[Hg] eCW3 ([facility]) Systolic blood 98 mm[Hg] 98 mm[Hg] eCW3 ([facility]) Body temperature 98.3 [degF] 98.3 [degF] eCW3 ( [facility]) Heart rate 20 /min 20 /min eCW3 ([facility]) Body mass index 22.577 kg/m2 22.577 kg/m2 eCW3 ([place] (BMI) [Ratio] [facility]) Body weight 115.6 115.6 [lb_av] eCW3 ([place] [lb_av] [facility]) Body height 60 [in_i] 60 [in_i] eCW3 ([facility])
--- NOTE | 2020-08-28 01:28 | PDOC ---
Attending Attestation - Resident Resident Name: Cristhian Murdock - ED Attending Attestation I have performed the following: I have examined & evaluated the patient, The case was reviewed & discussed with the resident, I agree w/resident's findings & plan, Exceptions are as noted - HPI HPI: 19 yo F no significant PMH presents with low back pain for past 2 days. Worse with extending her back, better with leaning forward. Denies dysuria, fever, N/V. - Physicial Exam PE: GENERAL: Awake, alert, and fully oriented, in no acute distress HEAD: No signs of trauma EYES: PERRLA, EOMI, sclera anicteric, conjunctiva clear ENT: Auricles normal inspection, hearing grossly normal, nares patent, oropharynx clear without exudates. Moist mucosa NECK: Normal ROM, supple, no lymphadenopathy, JVD, or masses LUNGS: Breath sounds equal, clear to auscultation bilaterally. No wheezes, and no crackles HEART: Regular rate and rhythm, normal S1 and S2, no murmurs, rubs or gallops ABDOMEN: Soft, +suprapubic tenderness, normoactive bowel sounds. No guarding, no rebound. No masses EXTREMITIES: Normal range of motion, no edema. No clubbing or cyanosis. No cords, erythema, or tenderness NEUROLOGICAL: Cranial nerves II through XII grossly intact. Normal speech, normal gait. Motor and sensation intact SKIN: Warm, dry, normal turgor, no rashes or lesions noted. SPINE: No midline tenderness. +Tenderness to R lower back. No CVAT. - Medical Decision Making Suspect early pyelo. Will treat with pyelo dosing. Stable for DC home. 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 Follow up with your primary care doctor within 5 days for further evaluation of your condition. Return to the emergency department if your condition worsens and/or you experience fevers, chills, nausea, vomiting, abdominal pain, painful urination, abnormal discharge, back pain. - Post Discharge Activity
[2020-08-28 02:08] LABS: EPI CELLS >36 /uL (0-25.1); HYALINE CASTS 5 /uL (0-3.1); PH,URINE 5.5 (5.0-8.0); URINE APPEARANCE CLOUDY; URINE BACTERIA 4867 /uL (0-1359); URINE BILIRUBIN NEGATIVE (NEGATIVE); URINE COLOR YELLOW; URINE GLUCOSE (UA) NEGATIVE (NEGATIVE); URINE KETONE NEGATIVE (NEGATIVE); URINE LEUK ESTERASE 2+ (NEGATIVE); URINE NITRITE NEGATIVE (NEGATIVE); URINE PROTEIN NEGATIVE (NEGATIVE); URINE RBC 8 /uL (0-23.9); URINE UROBILINOGEN 0.2 mg/dL (0.2-1.0); URINE WBC 158 /uL (0-25.8)
[2020-08-28 02:57] LABS: EPI CELLS >36 /uL (0-25.1); HYALINE CASTS 1 /uL (0-3.1); URINE APPEARANCE CLOUDY; URINE BACTERIA 561 /uL (0-1359); URINE BILIRUBIN NEGATIVE (NEGATIVE); URINE COLOR YELLOW; URINE GLUCOSE (UA) NEGATIVE (NEGATIVE); URINE KETONE NEGATIVE (NEGATIVE); URINE LEUK ESTERASE 1+ (NEGATIVE); URINE NITRITE NEGATIVE (NEGATIVE); URINE PROTEIN NEGATIVE (NEGATIVE); URINE UROBILINOGEN 0.2 mg/dL (0.2-1.0); URINE WBC 30 /uL (0-25.8)
[2020-08-28] MEDS ORDERED: CEPHALEXIN MONOHYDRATE 500 MG CAPSULE (UD) PO ONE (03:03)
[2020-08-28] MEDS ORDERED: CEPHALEXIN MONOHYDRATE 500 MG CAPSULE (UD) ONE (03:13)
== END 2020-08-28 03:16 | disposition home or self-care (01) ==
LOC: JER 01:09
DX: N10 Acute pyelonephritis (principal)
CPT/HCPCS: 36415; 81003; 84703; 86780; 87086; 87186; 87389; 87491; 87591; 99283-25

== ENCOUNTER 2020-09-13 00:32 | Emergency (ER) | payer OTHER ==
[2020-09-13 01:30] VITALS: BMI 26.4
[2020-09-13 02:15] LABS: EPI CELLS 25 /uL (0-25.1); HYALINE CASTS 2 /uL (0-3.1); PH,URINE 5.5 (5.0-8.0); URINE APPEARANCE CLEAR; URINE BACTERIA 154 /uL (0-1359); URINE BILIRUBIN NEGATIVE (NEGATIVE); URINE COLOR YELLOW; URINE GLUCOSE (UA) NEGATIVE (NEGATIVE); URINE KETONE NEGATIVE (NEGATIVE); URINE LEUK ESTERASE NEGATIVE (NEGATIVE); URINE NITRITE NEGATIVE (NEGATIVE); URINE PROTEIN NEGATIVE (NEGATIVE); URINE RBC 14 /uL (0-23.9); URINE UROBILINOGEN 0.2 mg/dL (0.2-1.0); URINE WBC 28 /uL (0-25.8)
[2020-09-13 02:33] LABS: BASO % 0.5 % (0-2.0); EOS % 2.3 % (0-4.5); HEMATOCRIT 39.5 % (32.4-45.2); HEMOGLOBIN 13.2 GM/dL (10.7-15.3); LYMPH % 33.2 % (8-40); MCH 30.8 pg (25.7-33.7); MCHC 33.5 g/dl (32.0-36.0); MEAN CELL VOLUME 92.1 fl (80-96); MEAN PLT VOLUME 10.4 fl (7.5-11.1); MONO % 6.1 % (3.8-10.2); NEUT % 57.9 % (42.8-82.8); PLATELET COUNT 231 K/MM3 (134-434); RBC 4.28 M/mm3 (3.60-5.2); RDW 12.9 % (11.6-15.6); WHITE BLOOD COUNT 8.9 K/mm3 (4.0-10.0)
[2020-09-13 03:38] VITALS: BP 107/78; PULSE 76; TEMP 98
== END 2020-09-13 03:38 | disposition home or self-care (01) ==
LOC: JER 00:32
DX: N93.9 Abnormal uterine and vaginal bleeding, unspecified (principal)
CPT/HCPCS: 36415; 76817-TC; 81003; 84702; 85025; 99284-25

== ENCOUNTER 2021-01-09 01:28 | Emergency (ER) | payer OTHER ==
[2021-01-09 02:25] VITALS: TEMP 99; BMI 25.5
[2021-01-09] MEDS ORDERED: ACETAMINOPHEN 325 MG TABLET (FP) PO ONE (03:12)
[2021-01-09] MEDS ORDERED: ACETAMINOPHEN 325 MG TABLET (FP) ONE (03:21)
[2021-01-09 03:42] LABS: BASO % 0.3 % (0-2.0); EOS % 4.1 % (0-4.5); HEMATOCRIT 43.5 % (32.4-45.2); HEMOGLOBIN 14.4 GM/dL (10.7-15.3); LYMPH % 36.9 % (8-40); MCH 30.8 pg (25.7-33.7); MCHC 33.1 g/dl (32.0-36.0); MEAN CELL VOLUME 93.2 fl (80-96); MEAN PLT VOLUME 10.9 fl (7.5-11.1); MONO % 6.4 % (3.8-10.2); NEUT % 52.3 % (42.8-82.8); PLATELET COUNT 258 K/MM3 (134-434); RBC 4.66 M/mm3 (3.60-5.2); RDW 12.6 % (11.6-15.6); WHITE BLOOD COUNT 7.7 K/mm3 (4.0-10.0)
[2021-01-09 03:46] LABS: EPI CELLS >36 /uL (0-25.1); HYALINE CASTS 3 /uL (0-3.1); PH,URINE 5.5 (5.0-8.0); URINE APPEARANCE CLOUDY; URINE BACTERIA 421 /uL (0-1359); URINE BILIRUBIN NEGATIVE (NEGATIVE); URINE COLOR YELLOW; URINE GLUCOSE (UA) NEGATIVE (NEGATIVE); URINE KETONE NEGATIVE (NEGATIVE); URINE LEUK ESTERASE NEGATIVE (NEGATIVE); URINE NITRITE NEGATIVE (NEGATIVE); URINE PROTEIN NEGATIVE (NEGATIVE); URINE RBC 5 /uL (0-23.9); URINE UROBILINOGEN 0.2 mg/dL (0.2-1.0); URINE WBC 7 /uL (0-25.8)
[2021-01-09 03:50] LABS: PROTHROMBIN TIME (PATIENT) 12.3 SEC (9.7-13.0)
[2021-01-09 03:53] LABS: ACTIVATED PTT 35.9 SECONDS (25.2-36.5)
[2021-01-09 04:13] LABS: POTASSIUM 4.2 mmol/L (3.5-5.1)
[2021-01-09 04:15] LABS: CALCIUM 9.5 mg/dL (8.5-10.1)
[2021-01-09 04:16] LABS: BLOOD UREA NITROGEN 10.5 mg/dL (7-18)
[2021-01-09 04:19] LABS: CREATININE 0.6 mg/dL (0.55-1.3)
[2021-01-09 04:20] LABS: BILIRUBIN,TOTAL 0.2 mg/dL (0.2-1); TOT PROT 7.8 g/dl (6.4-8.2)
[2021-01-09 05:54] VITALS: BP 138/81; PULSE 59
== END 2021-01-09 05:56 | disposition home or self-care (01) ==
LOC: JER 01:28
DX: R10.9 Unspecified abdominal pain (principal); I31.3 Pericardial effusion (noninflammatory)
CPT/HCPCS: 36415; 74177-TC; 80053; 81003; 84702; 84703; 85025; 85610; 85730; 86850; 86900; 86901; 87086; 87491; 87591; 93005; 93010; 99285-25

== ENCOUNTER 2021-05-12 21:54 | Emergency (ER) | payer OTHER ==
[2021-05-12 22:23] VITALS: BP 131/82; PULSE 63; TEMP 98.5; BMI 25.7
[2021-05-12] MEDS ORDERED: ACETAMINOPHEN 325 MG TABLET (FP) PO ONE (23:16)
[2021-05-12] MEDS ORDERED: SODIUM CHLORIDE 0.9% 500 ML INFUS.BAG IV ONE (23:17)
[2021-05-12] MEDS ORDERED: ACETAMINOPHEN 325 MG TABLET (FP) ONE (23:30)
[2021-05-12 23:59] LABS: BASO % 0.7 % (0-2.0); EOS % 1.4 % (0-4.5); HEMATOCRIT 39.7 % (32.4-45.2); HEMOGLOBIN 13.3 GM/dL (10.7-15.3); LYMPH % 28.8 % (8-40); MCH 30.8 pg (25.7-33.7); MCHC 33.5 g/dl (32.0-36.0); MEAN PLT VOLUME 10.3 fl (7.5-11.1); MONO % 4.3 % (3.8-10.2); NEUT % 64.8 % (42.8-82.8); PLATELET COUNT 232 10^3/uL (134-434); RBC 4.32 M/mm3 (3.60-5.2); RDW 12.9 % (11.6-15.6)
[2021-05-13 00:08] LABS: EPI CELLS 26 /uL (0-25.1); HYALINE CASTS 1 /uL (0-3.1); PH,URINE 5.5 (5.0-8.0); URINE APPEARANCE CLEAR; URINE BACTERIA 641 /uL (0-1359); URINE BILIRUBIN NEGATIVE (NEGATIVE); URINE COLOR YELLOW; URINE GLUCOSE (UA) NEGATIVE (NEGATIVE); URINE KETONE 1+ (NEGATIVE); URINE LEUK ESTERASE 1+ (NEGATIVE); URINE NITRITE NEGATIVE (NEGATIVE); URINE PROTEIN NEGATIVE (NEGATIVE); URINE RBC 4 /uL (0-23.9); URINE WBC 61 /uL (0-25.8)
[2021-05-13] MEDS ORDERED: CEPHALEXIN MONOHYDRATE 500 MG CAPSULE (UD) PO ONE (00:13)
[2021-05-13 00:27] LABS: CALCIUM 9.1 mg/dL (8.5-10.1)
[2021-05-13 00:28] LABS: ALBUMIN 4.1 g/dl (3.4-5.0); BLOOD UREA NITROGEN 6.8 mg/dL (7-18)
[2021-05-13 00:31] LABS: CREATININE 0.6 mg/dL (0.55-1.3)
[2021-05-13] MEDS ORDERED: CEPHALEXIN MONOHYDRATE 500 MG CAPSULE (UD) ONE (00:32)
[2021-05-13 00:33] LABS: BILIRUBIN,TOTAL 0.3 mg/dL (0.2-1)
[2021-05-13 01:28] LABS: HIV INTERPRETATION NEGATIVE (NEGATIVE)
== END 2021-05-13 02:36 | disposition home or self-care (01) ==
LOC: JER 21:54
DX: R30.0 Dysuria (principal); R10.2 Pelvic and perineal pain; Z32.01 Encounter for pregnancy test, result positive
CPT/HCPCS: 36415; 76817-TC; 80053; 81003; 84702; 85025; 86780; 87389; 87491; 87591; 87661; 99284-25

== ENCOUNTER 2022-08-20 12:40 | Inpatient (IN) | payer OTHER ==
[2022-08-20] MEDS ORDERED: ELECTROLYTE-148 SOLN 1,000 ML IV ONE (13:50)
[2022-08-20] MEDS ORDERED: CITRIC ACID/SODIUM CITRATE 30 ML UNIT-DOSE CUP PO ONE (17:09)
[2022-08-20] MEDS ORDERED: DEXTROSE 5%-LACTATED RINGERS 1,000 ML IV SCH (17:15)
[2022-08-20 17:21] LABS: BASO % 0.3 % (0-2.0); EOS % 1.7 % (0-4.5); HEMOGLOBIN 11.9 GM/dL (10.7-15.3); LYMPH % 28.5 % (8-40); MCH 30.4 pg (25.7-33.7); MCHC 33.2 g/dl (32.0-36.0); MEAN CELL VOLUME 91.6 fl (80-96); MEAN PLT VOLUME 9.9 fl (7.5-11.1); MONO % 5.5 % (3.8-10.2); PLATELET COUNT 175 10^3/uL (134-434); RBC 3.93 M/mm3 (3.60-5.2); RDW 13.1 % (11.6-15.6); WHITE BLOOD COUNT 8.9 K/mm3 (4.0-10.0)
[2022-08-20 17:26] LABS: INR 1.01 (0.83-1.09); PROTHROMBIN TIME (PATIENT) 11.6 SEC (9.7-13.0)
[2022-08-20 17:28] LABS: ACTIVATED PTT 27.4 SECONDS (25.2-36.5)
[2022-08-20 17:30] LABS: CALCIUM 9.3 mg/dL (8.5-10.1)
[2022-08-20 17:34] LABS: CREATININE 0.5 mg/dL (0.55-1.3)
[2022-08-20] MEDS ORDERED: ONDANSETRON 4 MG/2 ML VIAL IVPUSH PRN (18:34)
[2022-08-20] MEDS ORDERED: OXYTOCIN 30 UNITS in 0.9% NS 30 UNIT/500 ML INFUS.BAG IVPB ONE (18:35)
[2022-08-20 18:50] LABS: CORD HCO3 24.9 mmHg (20-29); CORD PCO2 59.2 mmHg (30-78); CORD pH 7.241 (7.14-7.44)
[2022-08-20 18:54] LABS: CORD BASE EXCESS -1.7 mmol/L (0-2); CORD HCO3 23.9 mmHg (20-29); CORD PCO2 43.5 mmHg (30-78); CORD pH 7.357 (7.14-7.44)
[2022-08-20] MEDS: OXYTOCIN 20 UNITS in 0.9% NS 20 UNIT/1,000 ML INFUS.BAG IV SCH ×2 (19:45→20:19)
[2022-08-20] MEDS ORDERED: SENNOSIDES/DOCUSATE COMBO (SENNA PLUS) TABLET (UD) PO PRN (19:49)
[2022-08-20] MEDS ORDERED: IBUPROFEN 800 MG/8 ML IJ IVPB PRN (19:49)
[2022-08-20] MEDS ORDERED: METHYLERGONOVINE MALEATE 0.2 MG/1 ML AMP IM PRN (19:49)
[2022-08-20 19:50] VITALS: BMI 26.4
[2022-08-20] MEDS: SIMETHICONE 80 MG TAB.CHEW (FP) PO PRN (22:59)
[2022-08-21] MEDS: CEFAZOLIN 1 GM in DEXTROSE 5%-WATER - 50 ML IVPB SCH ×3 (01:02→17:08)
[2022-08-21] MEDS: OXYTOCIN 20 UNITS in 0.9% NS 20 UNIT/1,000 ML INFUS.BAG IV SCH (01:04)
[2022-08-21] MEDS: SIMETHICONE 80 MG TAB.CHEW (FP) PO PRN ×3 (05:40→19:50)
[2022-08-21] MEDS ORDERED: oxyCODONE HCL 5 MG TABLET PO PRN ×2 (07:49)
[2022-08-21 09:29] LABS: BASO % 0.2 % (0-2.0); EOS % 1.5 % (0-4.5); HEMATOCRIT 30.8 % (32.4-45.2); HEMOGLOBIN 10.5 GM/dL (10.7-15.3); LYMPH % 17.4 % (8-40); MCH 30.8 pg (25.7-33.7); MCHC 33.9 g/dl (32.0-36.0); MEAN CELL VOLUME 90.8 fl (80-96); MEAN PLT VOLUME 10.5 fl (7.5-11.1); MONO % 7.3 % (3.8-10.2); NEUT % 73.6 % (42.8-82.8); PLATELET COUNT 134 10^3/uL (134-434); WHITE BLOOD COUNT 10.1 K/mm3 (4.0-10.0)
[2022-08-21] MEDS: ENOXAPARIN NA (PORCINE) 40 MG/0.4 ML DISP.SYRIN SQ SCH (09:56)
[2022-08-21] MEDS: IBUPROFEN 600 MG TABLET (FP) PO PRN ×2 (09:56→19:50)
[2022-08-21] MEDS: PRENATAL VITAMINS W/ FOLIC ACID TABLET (FP) PO SCH (09:56)
[2022-08-21] MEDS ORDERED: FLU VACC QS2022-23(6MOS UP)/PF 60 MCG/0.5 ML SYRINGE IM ONE (10:00)
[2022-08-21] MEDS ORDERED: DIPHTH,PERTUSS(ACELL),TET 0.5 ML DISP.SYRIN IM ONE (10:00)
[2022-08-21] MEDS: ACETAMINOPHEN 325 MG TABLET (FP) PO PRN (18:04)
[2022-08-21] MEDS ORDERED: BISACODYL 10 MG SUPP.RECT RC PRN (19:49)
[2022-08-21] MEDS: FERROUS SO4 325 MG TABLET (FP) PO SCH (21:44)
[2022-08-22] MEDS: SIMETHICONE 80 MG TAB.CHEW (FP) PO PRN ×3 (02:55→20:54)
[2022-08-22] MEDS: IBUPROFEN 600 MG TABLET (FP) PO PRN ×3 (02:55→20:54)
[2022-08-22] MEDS: ENOXAPARIN NA (PORCINE) 40 MG/0.4 ML DISP.SYRIN SQ SCH (09:25)
[2022-08-22] MEDS: PRENATAL VITAMINS W/ FOLIC ACID TABLET (FP) PO SCH (09:26)
[2022-08-22] MEDS: FERROUS SO4 325 MG TABLET (FP) PO SCH ×2 (09:27→21:08)
[2022-08-22 09:57] VITALS: RESP 18
[2022-08-22] MEDS: ACETAMINOPHEN 325 MG TABLET (FP) PO PRN (17:30)
[2022-08-23] MEDS: SIMETHICONE 80 MG TAB.CHEW (FP) PO PRN (06:08)
[2022-08-23] MEDS: IBUPROFEN 600 MG TABLET (FP) PO PRN (06:08)
[2022-08-23 08:09] LABS: BASO % 0.2 % (0-2.0); EOS % 3.5 % (0-4.5); HEMATOCRIT 31.6 % (32.4-45.2); HEMOGLOBIN 10.6 GM/dL (10.7-15.3); LYMPH % 22.1 % (8-40); MCH 30.3 pg (25.7-33.7); MCHC 33.4 g/dl (32.0-36.0); MEAN CELL VOLUME 90.7 fl (80-96); MEAN PLT VOLUME 11.1 fl (7.5-11.1); MONO % 4.7 % (3.8-10.2); NEUT % 69.5 % (42.8-82.8); PLATELET COUNT 172 10^3/uL (134-434); RBC 3.49 M/mm3 (3.60-5.2); RDW 13.5 % (11.6-15.6); WHITE BLOOD COUNT 9.8 K/mm3 (4.0-10.0)
[2022-08-23 10:30] VITALS: BP 116/75; PULSE 88; TEMP 98.8
[2022-08-23] MEDS: FERROUS SO4 325 MG TABLET (FP) PO SCH (10:45)
[2022-08-23] MEDS: ENOXAPARIN NA (PORCINE) 40 MG/0.4 ML DISP.SYRIN SQ SCH (10:45)
[2022-08-23] MEDS: PRENATAL VITAMINS W/ FOLIC ACID TABLET (FP) PO SCH (10:45)
== END 2022-08-23 13:25 | disposition home or self-care (01) | DRG 540 ==
LOC: JDEL 12:40 → JLDR 16:30 → J3W 21:35
PROVIDERS: ADMIT Obstetrics & Gynecology; ATTEND Obstetrics & Gynecology
PROC: 10D00Z1 Extraction of Products of Conception, Low, Open Approach (ICD-10-PCS; principal; 2022-08-20)
PROC: 0UT70ZZ Resection of Bilateral Fallopian Tubes, Open Approach (ICD-10-PCS; 2022-08-20)
DX: O60.14X0 Preterm labor third trimester with preterm delivery third trimester, not applicable or unspecified (principal); O24.424 Gestational diabetes mellitus in childbirth, insulin controlled; O34.211 Maternal care for low transverse scar from previous cesarean delivery; O69.81X0 Labor and delivery complicated by cord around neck, without compression, not applicable or unspecified; Z3A.36 36 weeks gestation of pregnancy; Z37.0 Single live birth
CPT/HCPCS: 36415; 36600; 59025; 80048; 82803; 82962; 85025; 85610; 85730; 86780; 86850; 86900; 86901; 88302-TC; 88307-TC; 90715; 93005; 93010; C9803-CS; G0008; Q2036; U0003; U0005